=== PATIENT | female | born 1995 | race American Indian/Alaskan Native ===

== ENCOUNTER 2021-05-20 10:48 | Outpatient (CLI) | payer OTHER | END 2021-05-20 16:57 | disposition home or self-care (01) | LOC: LAB 10:48 → APU 16:40 → LAB 16:57 | PROVIDERS: ATTEND Nurse Practitioner Women's Health | DX: O26.892 Other specified pregnancy related conditions, second trimester (principal); Z3A.27 27 weeks gestation of pregnancy; Z67.11 Type A blood, Rh negative | CPT/HCPCS: 86850; 86900; 86901; 96372; J2790 ==

== ENCOUNTER 2021-07-09 21:30 | Outpatient (CLI) | payer OTHER ==
[2021-07-09 22:23] VITALS: BP 120/85
--- NOTE | 2021-07-10 00:16 | Ultrasound Report ---
ULTRASOUND BIOPHYSICAL PROFILE INDICATION / CLINICAL INFORMATION: well-being COMPARISON: None available. FINDINGS: BREATHING MOVEMENT = 2 GROSS BODY MOVEMENT = 2 TONE = 2 QUALITATIVE AMNIOTIC FLUID VOLUME = 2 TOTAL BIOPHYSICAL SCORE = 06/27 PRESENTATION: Cephalic. HEART RATE (beats per minute): 139 IMPRESSION: 1. biophysical profile = 06/27 Signer Name: Delano Rivas MD Signed: 07/10/2021 12:12 AM Workstation Name: [id number]
--- NOTE | 2021-07-13 09:05 | Ultrasound Report ---
ULTRASOUND OBSTETRIC LIMITED INDICATION / CLINICAL INFORMATION: check for placenta trauma. TECHNIQUE: Transabdominal ultrasound imaging. COMPARISON: 07/09/2021 FINDINGS: HEART RATE (beats per minute): 159 AMNIOTIC FLUID INDEX (cm) = not measured PRESENTATION: Cephalic. ADDITIONAL FINDINGS: The placenta is right lateral, grade 1. No evidence for abruption or previa. IMPRESSION: No significant abnormality. Signer Name: Cecil Green Jr, MD Signed: 07/13/2021 9:01 AM Workstation Name: [id number]
== END 2021-07-09 23:49 | disposition home or self-care (01) ==
LOC: TRG 21:30 → APU 21:32 → TRG 23:49
PROVIDERS: ATTEND Obstetrics & Gynecology
DX: Z34.93 Encounter for supervision of normal pregnancy, unspecified, third trimester (principal); Z3A.35 35 weeks gestation of pregnancy
CPT/HCPCS: 59025; 76815; 76819

== ENCOUNTER 2021-08-09 21:59 | Inpatient (IN) | payer OTHER ==
[2021-08-10] MEDS ORDERED: LACTATED RINGERS 1,000 ML IV ONE (00:39)
[2021-08-10] MEDS ORDERED: CARBOPROST TROMETHAMINE 250 MCG/1 ML INJ IM PRN (01:02)
[2021-08-10] MEDS ORDERED: AMPICILLIN/NS 2 GM/100 ML 2 GM/100 ML BAG IV ONE (01:02)
[2021-08-10] MEDS ORDERED: ACETAMINOPHEN 325 MG TAB PO PRN (01:02)
[2021-08-10] MEDS ORDERED: miSOPROStol 200 MCG TAB PR PRN (01:02)
[2021-08-10] MEDS ORDERED: BUTORPHANOL 2 MG/1 ML INJ IV PRN (01:02)
[2021-08-10] MEDS ORDERED: MINERAL OIL 30 ML ORAL LIQD PO PRN (01:02)
[2021-08-10] MEDS ORDERED: METHYLERGONOVINE MALEATE 0.2 MG/ML VIAL IM PRN (01:02)
[2021-08-10] MEDS ORDERED: TERBUTALINE 1 MG/1 ML INJ SUB-Q PRN (01:02)
[2021-08-10] MEDS ORDERED: NALOXONE 0.4 MG/1 ML INJ IV PRN (01:02)
[2021-08-10] MEDS ORDERED: ePHEDrine SULFATE 50 MG/1 ML INJ IV PRN ×3 (01:02→02:40)
[2021-08-10] MEDS ORDERED: OXYTOCIN 10 UNIT/1 ML INJ IM PRN (01:02)
[2021-08-10] MEDS ORDERED: LIDOCAINE (2%) 20 MG/1 ML VIAL 20 ML MDV INFILTRATI ONE (01:02)
[2021-08-10] MEDS ORDERED: ONDANSETRON 4 MG/2 ML INJ IV PRN ×2 (01:02→05:48)
[2021-08-10] MEDS ORDERED: LOPERAMIDE 2 MG CAP PO PRN (01:02)
[2021-08-10] MEDS ORDERED: fentaNYL 100 MCG/2 ML INJ IV PRN (01:02)
--- NOTE | 2021-08-10 01:05 | Ultrasound Report ---
US OB BPP wo non-stress, US OB limited INDICATION / CLINICAL INFORMATION: VARIABLES. COMPARISON: 07/09/2021 FINDINGS: BREATHING MOVEMENT = 0 GROSS BODY MOVEMENT = 0 TONE = 0 QUALITATIVE AMNIOTIC FLUID VOLUME = 2 TOTAL BIOPHYSICAL SCORE = 2/8 AMNIOTIC FLUID INDEX (cm) = 8.2 PRESENTATION: Cephalic. HEART RATE (beats per minute): 156 IMPRESSION: 1. Single live IUP in cephalic presentation with heart rate measuring 156 bpm. 2. biophysical profile = 2/8. Abnormal breathing, movement, and tone. Recommend close clinical surveillance. 3. YULIA measures 8.2 cm, within normal limits. Signer Name: Latrell Whitfield MD Signed: 08/10/2021 1:00 AM Workstation Name: [id number]
[2021-08-10] MEDS ORDERED: LACTATED RINGERS 1,000 ML IV SCH (01:15)
[2021-08-10 01:35] LABS: Hematocrit 30.8 % (30.3-42.9); Mean Corpuscular HGB Conc 32 % (30-34); Mean Corpuscular Volume 89 fl (79-97); Platelet Count 323 K/mm3 (140-440); Red Blood Count 3.47 M/mm3 (3.65-5.03); Red Cell Distribution Width 15.7 % (13.2-15.2)
[2021-08-10] MEDS ORDERED: NALOXONE 2 MG/2 ML INJ IV PRN ×2 (01:38→02:40)
--- NOTE | 2021-08-10 01:38 | History and Physical Report ---
History of Present Illness Date of examination: 08/10/21 Date of admission: 08/10/21 01:02 Chief complaint: contractions History of present illness: Pt is a 26 year old NANDO 08/13/21 at 39w4d who presents with regular contractions and cervical change from 3 cm to 4 cm while being evaluated in triage. She was unsure of rupture of membranes, but she had a ROM plus that is negative. She denies vaginal bleeding. She has had care at [facility] since 12 wks with comanagement by [facility] complicated by morbid obesity, suspected atrial septal aneurysm without arrhythmia, h/o preeclampsia, h/o IUGR, Rh Negative s/p Rhogam 05/20/21, prior section, genital herpes without lesion or prodrome, previous with liver failure. She is GBS positive. Pt unable to be still long enough for assessment with BPP. Study extremely limi myra. Past History Past Medical History: other (morbid obesity ) Past Surgical History: section (2017) TURN OUT History: herpes ( no lesion or prodrome ) Family/Genetic History: hypertension, cancer Social history: no significant social history - Obstetrical History Expected Date of Delivery: 08/13/21 Actual Gestation: 39 Week(s) 4 Day(s) : 3 Para: 2 Hx # Term Pregnancies: 1 Number of Pregnancies: 1 Spontaneous Abortions: 0 Induced : 0 Number of Living Children: 1 Medications and Allergies Allergies Allergy/AdvReac Type Severity Reaction Status Date / Time No Known Allergies Allergy Verified 09/10/13 17:19 Home Medications Medication Instructions Recorded Confirmed Last Taken Type Gentamicin 0.3% Ophth Oint 1 applicatio OP Q4H #1 tube 11/26/14 Unknown Rx Sulfamethoxazole/Trimethoprim 1 each PO BID #20 tablet 11/26/14 Unknown Rx [Bactrim Ds] traMADoL [Ultram] 50 mg PO Q6HR PRN #10 tablet 11/26/14 Unknown Rx Active Meds: Active Medications Acetaminophen (Acetaminophen 325 Mg Tab) 650 mg PO Q4H PRN PRN Reason: Pain, Mild (1-3) Butorphanol Tartrate (Butorphanol 2 Mg/1 Ml Inj) 1 mg IV Q2H PRN PRN Reason: Pain, Moderate(4-6) LABOR PAIN Carboprost Tromethamine (Carboprost Tromethamine 250 Mcg/1 Ml Inj) 250 mcg IM ONCE PRN PRN Reason: Uterine Bleeding Ephedrine Sulfate (Ephedrine Sulfate 50 Mg/1 Ml Inj) 10 mg IV Q2M PRN PRN Reason: Hypotension Fentanyl (Fentanyl 100 Mcg/2 Ml Inj) 100 mcg IV Q2H PRN PRN Reason: Pain,Severe (7-10) LABOR PAIN Lactated Ringer's (Lactated Ringers) 1,000 mls @ 999 mls/hr IV BOLUS ONE Stop: 08/10/21 01:39 Oxytocin/Sodium Chloride (Pitocin/Ns 30 Unit/500ml) 30 units in 500 mls @ 2 mls/hr IV TITR DOLORES; Protocol Lactated Ringer's (Lactated Ringers) 1,000 mls @ 125 mls/hr IV DIRECT DOLORES Oxytocin/Sodium Chloride (Pitocin/Ns 30 Unit/500ml) 30 units in 500 mls @ 40 mls/hr IV TITR DOLORES; Protocol Ampicillin Sodium (Ampicillin/Ns 2 Gm/100 Ml) 2 gm in 100 mls @ 100 mls/hr IV ONCE ONE; Protocol Stop: 08/10/21 02:01 Ampicillin Sodium (Ampicillin/Ns 1 Gm/50 Ml) 1 gm in 50 mls @ 100 mls/hr IV Q4H DOLORES; Protocol Loperamide HCl (Loperamide 2 Mg Cap) 2 mg PO ONCE PRN PRN Reason: give with Hemabate Methylergonovine Maleate (Methylergonovine Maleate 0.2 Mg/Ml Vial) 0.2 mg IM ONCE PRN PRN Reason: Uterine Bleeding Mineral Oil (Mineral Oil 30 Ml Oral Liqd) 30 ml PO QHS PRN PRN Reason: Constipation Misoprostol (Misoprostol 200 Mcg Tab) 800 mcg TX ONCE PRN PRN Reason: Uterine Bleeding Naloxone HCl (Naloxone 0.4 Mg/1 Ml Inj) 0.1 mg IV Q2MIN PRN PRN Reason: Res Rate </= 8 or 02 SAT < 92% Ondansetron HCl (Ondansetron 4 Mg/2 Ml Inj) 4 mg IV Q8H PRN PRN Reason: Nausea And Vomiting Oxytocin (Oxytocin 10 Unit/1 Ml Inj) 10 unit IM ONCE PRN PRN Reason: Uterine Bleeding Terbutaline Sulfate (Terbutaline 1 Mg/1 Ml Inj) 0.25 mg SUB-Q ONCE PRN PRN Reason: Hyperstimulation/Hypertonicity Review of Systems All systems: negative - Vital Signs Vital signs: Vital Signs Temp 98.4 F 08/09/21 22:39 Temp Pulse Resp BP Pulse Ox 98.4 F 94 H 129/60 98 08/09/21 22:39 08/10/21 01:33 08/10/21 01:02 08/10/21 01:33 - Physical Exam Breasts: Positive: deferred Abdomen: Positive: soft (obese, gravid ) Uterus: Positive: enlarged (gravid, obese) Extremities: Positive: edema (trace) - Obstetrical FHR: category 2 Uterine Contraction Monitor Mode: External Cervical Dilatation: 4 Cervical Effacement Percentage: 90 (per RN ) station: -2 Uterine Contraction Pattern: Regular Uterine Tone Measurement Phase: Resting Uterine Contraction Intensity: Moderate Results Result Diagrams: 08/10/21 00:45 Abnormal lab results 08/10/21 Range/Units 00:45 WBC 13.0 H (4.5-11.0) K/mm3 RBC 3.47 L (3.65-5.03) M/mm3 Hgb 10.0 L (10.1-14.3) gm/dl RDW 15.7 H (13.2-15.2) % All other labs normal. Assessment and Plan A: IUP at 39w4d Active Labor Previous x 1, desires trial of labor Morbid Obesity Suspected Atrial Septal Aneurysm without arrhythmia per [facility] ultrasound Rh Negative s/p Rhogam Genital Herpes without lesion or prodrome H/o IUGR, Preeclampsia, and liver failure in prior GBS positive P: Admit to labor and delivery Epidural as desired and consents to be signed and on chart Ampicillin for GBS prophylaxis Valtrex suppression Closely monitor maternal and status
--- NOTE | 2021-08-10 01:43 | Anesthesia Consultation ---
Anesthesia Consult and Med Hx Date of service: 08/10/21 - Airway Anesthetic Teeth Evaluation: Poor ROM Head & Neck: Adequate Mental/Hyoid Distance: Adequate Mallampati Class: Class II Intubation Access Assessment: Good - Pulmonary Exam CTA: Yes - Cardiac Exam Cardiac Exam: RRR - Pre-Operative Health Status ASA Pre-Surgery Classification: ASA2 Proposed Anesthetic Plan: Epidural - Pulmonary Hx Smoking: No Hx Asthma: No Hx Respiratory Symptoms: No SOB: No COPD: No Home Oxygen Therapy: No Hx Pneumonia: No Hx Sleep Apnea: No - Cardiovascular System Hx Hypertension: No Hx Coronary Artery Disease: No Hx Heart Attack/AMI: No Hx Angina: No Hx Percutaneous Transluminal Coronary Angioplasty (PTCA): No Hx Cardia Arrhythmia: No Hx Pacemaker: No Hx Internal Defibrillator: No Hx Valvular Heart Disease: No Hx Heart Murmur: No Hx Peripheral Vascular Disease: No - Central Nervous System Hx Neuromuscular Disorder: No Hx Seizures: No CVA: No Hx Back Pain: Yes Hx Psychiatric Problems: No - Gastrointestinal Hx Ulcer: No Hx Gastroesophageal Reflux Disease: Yes - Endocrine Hx Renal Disease: No Hx End Stage Renal Disease: No Hx Cirrhosis: No Hx Liver Disease: No Hx Insulin Dependent Diabetes: No Hx Non-Insulin Dependent Diabetes: No Hx Thyroid Disease: No Hx Hypothyroidism: No Hx Hyperthyroidism: No - Hematic Hx Anemia: No Hx Sickle Cell Disease: No - Other Systems Hx Alcohol Use: No Hx Substance Use: No Hx Cancer: No Hx Obesity: Yes
[2021-08-10] MEDS ORDERED: fentaNYL-BUPIV 2 MCG/ML-0.125% 200 MCG/100 ML BAG EPIDURAL SCH ×2 (02:00→03:00)
[2021-08-10] MEDS ORDERED: OXYTOCIN DRIP 30 UNITS/500 ML BAG IV SCH ×3 (02:00→05:48)
--- NOTE | 2021-08-10 02:27 | Progress Note ---
Labor Epidural - Labor Epidural Start Time: 01:57 Stop Time: 02:17 Performed by:: GLENNA MCCLURE Procedure: Patient is requesting a laboring epidural for laboring pain. Patient IDed, H&P reviewed, all questions and concerns were answered, and consent was signed. Timeout was performed at bedside. Patient in sitting position. Sterile prep and drape was performed. [3] ml of 1% lidocaine skin wheal at L[3]- L [4]. 18- gauge [employer] Softsystem[employer] epidural needle was advanced to loss of resistance with saline technique 9cm x 3 attempts. Unable to thread catheter first attempt. Negative CSF negative blood third attempt. Epidural catheter advanced to [12] centimeters. [NEGATIVE] Aspiration [NEGATIVE] test dose. Sterile dressing applied. Patient tolerated procedure.
--- NOTE | 2021-08-10 03:17 | Procedure Note ---
OB Delivery Note - Delivery Date of Delivery: 08/10/21 Surgeon: REY GUZMAN Estimated blood loss: other (400 mL) - Vaginal Delivery presentation: vertex Delivery position: OA Intrapartum events: PROM->1hr before delivery, uterine atony (s/p Methergine 0.2 mg IM ) Delivery induction: none Delivery monitor: external FHT, external uterine Route of delivery: Delivery placenta: spontaneous Delivery cord: nuchal cord (reduced ) Episiotomy: none Delivery laceration: other (midline periurethral ) Anesthesia: epidural - A at 1 minute: 7 at 5 minutes: 8 Infant Gender: Female (3310g (7lb oz) @ 0250 am)
[2021-08-10] MEDS ORDERED: BENZOCAINE/MENTHOL 20/0.5% TOP SPRAY 56 GM TP PRN (05:48)
[2021-08-10] MEDS ORDERED: diphenhydrAMINE 25 MG CAP PO PRN (05:48)
[2021-08-10] MEDS ORDERED: MAGNESIUM HYDROXIDE (MOM) ORAL LIQD UDC PO PRN (05:48)
[2021-08-10] MEDS ORDERED: PROMETHAZINE 25 MG RECT SUPP PR PRN (05:48)
[2021-08-10] MEDS ORDERED: WITCH HAZEL/ GLYCERIN PAD TP PRN (05:48)
[2021-08-10] MEDS ORDERED: LANOLIN/ZINC/DIMETHICONE (LANSINOH) 7 GM TP PRN ×2 (05:48)
[2021-08-10] MEDS ORDERED: PROMETHAZINE 25 MG TAB PO PRN (05:48)
[2021-08-10] MEDS ORDERED: AMPICILLIN/NS 1 GM/50 ML 1 GM/50 ML BAG IV SCH (06:00)
[2021-08-10] MEDS: IBUPROFEN 600 MG TAB PO SCH ×3 (06:41→18:05)
[2021-08-10] MEDS: HYDROcodone/ACETAMINOPHEN 5-325 MG TAB PO PRN ×2 (08:27→16:39)
[2021-08-10] MEDS ORDERED: valACYclovir 500 MG TAB PO SCH (10:00)
[2021-08-10] MEDS: FERROUS SULFATE 325 MG TAB PO SCH (10:48)
[2021-08-10 16:17] LABS: Hematocrit 28.2 % (30.3-42.9)
[2021-08-11] MEDS: HYDROcodone/ACETAMINOPHEN 5-325 MG TAB PO PRN (04:57)
[2021-08-11] MEDS ORDERED: MEASLES, MUMPS & RUBELLA 12,500 UNIT/0.5 ML VACCINE SUB-Q ONE (06:00)
[2021-08-11] MEDS ORDERED: TETANUS,DIPH,PERTUSS(ACELL) VACCINE 0.5 ML SYRINGE IM ONE (06:00)
[2021-08-11] MEDS: IBUPROFEN 600 MG TAB PO SCH ×3 (06:05→23:06)
--- NOTE | 2021-08-11 08:32 | Progress Note ---
Assessment and Plan - Patient Problems (1) Vaginal after Current Visit: Yes Status: Acute Plan to address problem: Continue routine PP orders Anticipate d/c home tomorrow f/u at clinic in 6 wks (2) Anemia Current Visit: Yes Status: Acute Qualifiers: Anemia type: iron deficiency Plan to address problem: Asymptomatic Increase iron rich foods into diet Continue daily oral iron supplementation as directed Subjective - Subjective Date of service: 08/11/21 Principal diagnosis: S/P ; PPD#1 Interval history: Pt is a 26 year old NANDO 08/13/21 at 39w4d who presents with regular co ntractions and cervical change from 3 cm to 4 cm while being evaluated in triage. She was unsure of rupture of membranes, but she had a ROM plus that is negative. She denies vaginal bleeding. She has had care at [facility] since 12 wks with comanagement by [facility] complicated by morbid obesity, suspected atrial septal aneurysm without arrhythmia, h/o preeclampsia, h/o IUGR, Rh Negative s/p Rhogam 05/20/21, prior section, genital herpes without lesion or prodrome, previous with liver failure. She is GBS positive. Patient reports: appetite normal, voiding normally, pain well controlled, flatus, ambulating normally [place]: doing well, bottle feeding (and ) Objective - Vital Signs Latest vital signs: Vital Signs Temp Pulse Resp BP Pulse Ox 08/10/21 23:25 97.7 F 92 H 20 120/80 99 08/10/21 15:50 98.1 F 113 H 18 112/61 97 08/10/21 12:03 97.8 F 110 H 18 120/61 97 Intake and Output 08/10/21 08/11/21 08/11/21 23:59 07:59 15:59 Intake Total 360 Balance 360 Intake: Intake, Free Water 360 Other: # Voids Void 2 - Exam Breasts: Present: normal Cardiovascular: Present: Regular rate Lungs: Present: Normal air movement Abdomen: Present: soft Uterus: Present: firm, fundal height below umbilicus (U-2) Extremities: Present: normal Deep Tendon Reflex Grade: Normal +2 - Labs Labs: Abnormal lab results 08/10/21 Range/Units 15:38 Hgb 9.0 L (10.1-14.3) gm/dl Hct 28.2 L (30.3-42.9) %
[2021-08-11] MEDS: FERROUS SULFATE 325 MG TAB PO SCH ×2 (18:09→23:06)
[2021-08-12] MEDS: IBUPROFEN 600 MG TAB PO SCH ×3 (05:19→18:35)
--- NOTE | 2021-08-12 08:35 | Discharge Summary ---
Providers - Providers Date of Admission: 08/10/21 01:02 Date of discharge: 08/12/21 Attending physician: REY GUZMAN 08/10/21 05:48 Consult to [employer]er [CONS] Routine Reason For Exam: assistance with , SNS Primary care physician: REY GUZMAN Hospitalization Reason for admission: active labor Delivery: Episiotomy: none Laceration: none Other procedures: none complications: none Discharge diagnosis: IUP at term delivered [place] baby: female Hospital course: Pt is a 26 year old NANDO 08/13/21 at 39w4d who presents with regular contractions and cervical change from 3 cm to 4 cm while being evaluated in triage. She was unsure of rupture of membranes, but she had a ROM plus that is negative. She denies vaginal bleeding. She has had care at [facility] since 12 wks with comanagement by [facility] complicated by morbid obesity, suspected atrial septal aneurysm without arrhythmia, h/o preeclampsia, h/o IUGR, Rh Negative s/p Rhogam 05/20/21, prior section, genital herpes without lesion or prodrome, previous with liver failure. She is GBS positive. Delivered viable female . Condition at discharge: Good Disposition: 01 HOME / SELF CARE / HOMELESS - Discharge Diagnoses (1) Vaginal after Status: Acute (2) Anemia Status: Acute Qualifiers: Anemia type: iron deficiency Comment: Asymptomatic Increase iron rich foods into diet Continue daily oral iron supplementation Plan - Discharge Medications Prescriptions: Ferrous Sulfate [Feosol 325 MG tab] 325 mg PO BID 30 Days #60 tablet Ibuprofen [Motrin 600 MG tab] 600 mg PO Q8H 7 Days #21 tablet - Provider Discharge Summary Activity: routine, no sex for 6 weeks, no heavy lifting 4 weeks, no strenuous exercise Diet: other (Iron rich diet) Instructions: routine Additional instructions: [] Smoking cessation referral if applicable(refer to patient education folder for contact #) [] Refer to [facility] Booklet Call your doctor immediately for: * Fever > 100.5 * Heavy vaginal bleeding ( >1 pad per hour) * Severe persistent headache * Shortness of breath * Reddened, hot, painful area to leg or breast * Drainage or odor from incision. * Keep laceration site clean and dry at all times and follow doctor's instructions regarding bathing/showering - Follow up plan Follow up: REY GUZMAN MD [Primary Care Provider] - 6 Weeks
[2021-08-12] MEDS: FERROUS SULFATE 325 MG TAB PO SCH (12:49)
[2021-08-12 18:47] VITALS: BP 122/62
== END 2021-08-12 18:50 | disposition home or self-care (01) | DRG 774 ==
LOC: TRG 21:59 → APU 22:02 → TRG 08-10 01:02 → APU 08-10 01:02 → LD 08-10 01:06 → OB 08-10 05:20
PROVIDERS: ADMIT Obstetrics & Gynecology; ATTEND Obstetrics & Gynecology
PROC: 10E0XZZ Delivery of Products of Conception, External Approach (ICD-10-PCS; principal; 2021-08-10)
PROC: 3E0R3BZ Introduction of Anesthetic Agent into Spinal Canal, Percutaneous Approach (ICD-10-PCS; 2021-08-10)
PROC: 00HU33Z Insertion of Infusion Device into Spinal Canal, Percutaneous Approach (ICD-10-PCS; 2021-08-10)
PROC: 0UQMXZZ Repair Vulva, External Approach (ICD-10-PCS; 2021-08-10)
PROC: 3E0234Z Introduction of Serum, Toxoid and Vaccine into Muscle, Percutaneous Approach (ICD-10-PCS; 2021-08-10)
PROC: 3E0234Z Introduction of Serum, Toxoid and Vaccine into Muscle, Percutaneous Approach (ICD-10-PCS; 2021-08-11)
DX: O34.211 Maternal care for low transverse scar from previous cesarean delivery (principal); O98.32 Other infections with a predominantly sexual mode of transmission complicating childbirth; Z37.0 Single live birth; O99.824 Streptococcus B carrier state complicating childbirth; O99.214 Obesity complicating childbirth; E66.01 Morbid (severe) obesity due to excess calories; Z3A.39 39 weeks gestation of pregnancy; O26.893 Other specified pregnancy related conditions, third trimester; Z67.11 Type A blood, Rh negative; A60.00 Herpesviral infection of urogenital system, unspecified; O99.62 Diseases of the digestive system complicating childbirth; O69.81X0 Labor and delivery complicated by cord around neck, without compression, not applicable or unspecified; O71.82 Other specified trauma to perineum and vulva; O62.2 Other uterine inertia; D50.9 Iron deficiency anemia, unspecified; O90.81 Anemia of the puerperium; Z20.822 Contact with and (suspected) exposure to COVID-19; Z23 Encounter for immunization
CPT/HCPCS: 36415; 59025; 76815; 76819; 84112; 85014; 85018; 85027; 85461; 86592; 86850; 86900; 86901; 99211; G0378; G0463; J0290; J2210; J2590; J2790; J7120; U0003